=== PATIENT | female | born 1975 | race Caucasian/White ===

== ENCOUNTER 2024-12-19 12:13 | Outpatient (CLI) | payer OTHER, SELFPAY ==
--- NOTE | ~2024-12-19 | US_ITS ---
EXAMINATION: US FNA w image guidance DATE: 12/19/2024 13:37 INDICATION: Multiple thyroid nodules TECHNIQUE: A time-out was performed to verify the patient's name, date of , and procedure to be performed . The procedure and its benefits and risks were discussed with the patient. Risks specifically discus sed included bleeding and infection. The patient understood the risks and agreed to proceed. The neck was prepped and draped in the usual sterile manner. 3 mL 1% lidocaine was used for local anesthesia . 7 passes were made with a 25G needle into the lesion. Appropriate needle location was documented with continuous sonographic guidance. A sterile bandage was applied. There were no immediate compli cations. FINDINGS: Grayscale ultrasound images demonstrate biopsy needles advanced into a 1.2 cm predominately solid mix ed hypoechoic isoechoic nodule which is wider than tall with smooth margins and with a single punctat e echogenic focus (TI-RADS 5, highly suspicious , FNA if >=1.0 cm, annual followup is >0.5 cm). IMPRESSION: 1. Successful ultrasound-guided fine needle aspiration of a 1.2 cm TI RADS 5 right thyroid nodule. Reviewed, dictated and finalized at location A. IMPRESSION: 1. Successful ultrasound-guided fine needle aspiration of a 1.2 cm TI RADS 5 r ight thyroid nodule.
--- OUTSIDE RECORDS SUMMARY | 2024-12-19 12:45 | XMS_ITS | Clinical Summary ---
Author Organization [facility] Address [address] [place] [address] Care Team Providers Care Traffic Survey Technician Name Role Phone Bro Miller MD Primary Care Provider Anup Lyle MD Unavailable [phone] Allergies Active Allergy Reactions Criticality Noted Date Comments Amoxicillin-Pot Clavulanate Unknown,Hives Medium 06/15 Codeine Dizziness 03/11/2016 Doxycycline Nausea and Vomiting 10/30/2013 Latex Rash Medium 07/01/2015 Oseltamivir Hives,Nausea and Vomiting,Vomiting 09/11/2014 Medications empagliflozin (JARDIANCE) 25 MG tablet Take 1 tablet (25 mg total) by mouth daily. Active albuterol (PROVENTIL) (2.5 MG/3ML) 0.083% nebulizer solution Take 3 mLs (2.5 mg total) by nebulization every 4 (four) hours as needed for Wheezing or Shortness of breath. Active vitamin D3 (CHOLECALCIFERO L) 125 mcg Tab Take 1 tablet (125 mcg total) by mouth daily. Pt takes 50,000 IUD once a week on Active nitroglycerin (NITROSTAT) 0.[address] 1 tablet (0.4 mg total) under the tongue every 5 (five) minutes as needed (To be given 3-5 minute prior to IV contrast injection (send down to CT scanner with pt)). 25 tablet 3 4 Active aspirin 81 MG chewable tablet Chew 1 tablet (81 mg total) by mouth daily. Active inclisiran (LEQVIO) injection Inject 1.5 mLs (284 mg total) into the skin every 6 (six) months. Active ticagrelor (BRILINTA) 90 mg tablet Take 1 tablet (90 mg total) by mouth 2 (two) times daily. 60 tablet 1 4 Active ranolazine ER (RANEXA) 500 MG 12 hr tabletIndicatio ns:Chest pain, unspecified type Take 1 tablet (500 mg total) by mouth 2 (two) times daily. 60 tablet 4 Active nicotine (NICODERM CQ) 21 MG/24HR Place 1 patch (21 mg total) onto the skin daily. 28 patch 4 Active Active Problems Problem Noted Date Diagnosed Date Chest pain 06/06/2024 Family History Medical History Relation Comments Cancer Father Diabetes Father Cancer Mother Diabetes Mother Relation Status Comments Father Mother Social History Tobacco Use Types Packs/Day Years Used Date Smoking Tobacco: Every Day Cigarettes Smokeless Tobacco: Never Tobacco Cessation:Ready to Q uit: Not Asked; Counseling Given: Not Answered Alcohol Use Standard Drinks/Week Comments Yes 0 (1 standard drink = 0.6 oz pur e alcohol) occasional B1300 Health Literacy Answer Date Recor ded How often do you need to hav e someone help you when you read instructions, pamphlets, or other written material from your doctor or pharmacy? Never 06/06/2024 [facility] Utilities Answer Date Recorded In the past 12 months has [facility] [employer], oil, or water [employer] threatened to shut off services in your home? No 06/13/2024 Humiliation, Afraid, Rape, and Kick questionnair e Answer Date Recorded Within the last year, have y ou been afraid of your partner or ex-partner? No 06/13/2024 Within the last year, have y ou been humiliated or emotionally abused in other ways by your partner or ex-partner? No Within the last year, have y ou been kicked, hit, slapped, or otherwise physically hurt by your partner or ex-partner? No 06/13/2024 Within the last year, have y ou been raped or forced to have any kind of sexual activity by your partner or ex-partner? No 06/13/2024 Social Connection and Isolat ion Panel [NHANES] Answer Date Recorded In a typical week, how many times do you talk on the phone with family, friends, or neighbors? More than three times a week 06/06/2024 How often do you get togethe r with friends or relatives? More than three times a week 06/06/2024 How often do you attend chur ch or anabaptist services? Never 06/06/2024 Do you belong to any clubs o r organizations such as mu-ism groups, unions, fraternal or athletic groups, or school groups? Yes 06/06/2024 How often do you attend meet ings of the clubs or organizations you belong to? 1 to 4 times per year 06/06/2024 Are you , , di vorced, , never , or living with a partner? 06/06/2024 AUDIT-C Answer Date Recorded Q1: How often do you have a drink containing alcohol? Never 06/06/2024 Q2: How many drinks containi ng alcohol do you have on a typical day when you are drinking? Patient does not drink Q3: How often do you have si x or more drinks on one occasion? Never 06/06/2024 Overall Financial Resource Strain (CARDIA) Answe r Date Recorded How hard is it for you to pa y for the very basics like food, housing, medical care, and heating? Somewhat hard 06/13/2024 [facility] [place] of Occupat ional Health - Occupational Stress Questionnaire Answer Date Recorded Do you feel stress - tense, restless, nervous, or anxious, or unable to sleep at night because your mind is troubled all the time - these days? Very much 06/06/2024 Exercise Vital Sign Answer Date Recorde d On average, how many days pe r week do you engage in moderate to strenuous exercise (like a brisk walk)? 4 days 06/06/2024 On average, how many minutes do you engage in exercise at this level? 60 min 06/06/2024 Hunger Vital Sign Answer Date Recorded Within the past 12 months, y ou worried that your food would run out before you got the money to buy more. Never true 06/13/20 24 Within the past 12 months, t he food you bought just didn't last and you didn't have money to get more. Never true 06/13/2024 PRAPARE - Transportation Answer Date Re corded In the past 12 months, has l ack of transportation kept you from medical appointments or from getting medications? No 06/02 In the past 12 months, has l ack of transportation kept you from meetings, work, or from getting things needed for daily living? No 06/13/2024 Housing Stability Vital Sign Answer Rebel e Recorded In the last 12 months, was t here a time when you were not able to pay the mortgage or rent on time? No 06/13/2024 In the past 12 months, how m any times have you moved where you were living? 0 06/13/2024 At any time in the past 12 m [facility], were you homeless or living in a [place] facility (including now)? No 06/13/2024 Comments No Sex and Gender Information Value Date Recorded Sex Assigned at Not on file Legal Sex Female 8:22 PM CDT Gender Identity Not on file Sexual Orientation Not on file Last Filed Vital Signs Vital Sign Reading Time Taken Comments Blood Pressure 111/79 08/05/2024 6:27 PM SENIOR ACCOUNTS PAYABLE SPECIALIST Pulse 82 08/05/2024 6:30 PM SENIOR ACCOUNTS PAYABLE SPECIALIST Temperature 36.7 C (98.1 F) 08/05/2024 4:46 PM SENIOR ACCOUNTS PAYABLE SPECIALIST Respiratory Rate 16 08/05/2024 6:30 PM SENIOR ACCOUNTS PAYABLE SPECIALIST Oxygen Saturation 98% 08/05/2024 6:30 PM SENIOR ACCOUNTS PAYABLE SPECIALIST Inhaled Oxygen Concentration - - Weight 94.7 kg (208 lb 12.8 oz) 08/05/2024 4:46 PM SENIOR ACCOUNTS PAYABLE SPECIALIST Height 170.2 cm (5' 7 ) 08/05/2024 4:46 PM SENIOR ACCOUNTS PAYABLE SPECIALIST Body Mass Index 32.7 08/05/2024 4:46 PM SENIOR ACCOUNTS PAYABLE SPECIALIST Plan of Treatment Health Maintenance Due Date Last Done Comments ASCVD Statin 1976 Colorectal Cancer Screening Colonoscopy (10 Years) 1976 Kidney Health Evaluation 1976 Annual Physical 1979 Pneumococcal Vaccine: Pediatrics (0 to 5 Years) and At-Risk Patients (6 to 64 Years) (1 of 2 - PCV) 1982 DTaP, Tdap and Td Vaccines (2 - Tdap) 06/07/1991 06/06/1991, 12/20/1978, 04/20/1977, Additional history exists Diabetes: Retinopathy Eye Exam 1994 Hepatitis B Vaccines (1 of 3 - 19+ 3-dose series) 1995 Cervical Cancer Screening Pap with HPV Testing (Age 30 to 64) Every 5 Years 2006 Hemoglobin A1C 07/15/2014 01/13/2014 ASCVD LDL 06/01/2021 06/01/2020, 11/03, 04/02/2014, Additional history exists Lipid Panel 06/01/2021 06/01/2020, 11/03, 04/02/2014, Additional history exists Mammogram Screening 03/25/2022 03/25/2020, 0 Cervical Cancer Screening Pap Smear (Age 30 to 64) Every 3 Years 11/27/2023 11/27/2020, 11/22/2019 Cervical Cancer Screening with HPV 11/27/2023 COVID-19 Vaccine ( season) 2024 Influenza Adult (#1) 2024 09/17/2012, 07/27/20 Hepatitis C Completed 12/06/2018 Meningococcal B Vaccine Aged Out No l onger eligible based on patient's age to complete this topic Meningococcal Vaccine Aged Out No bull mejia eligible based on patient's age to complete this topic RSV Immunizations Under 20 Months Aged Out No longer eligible based on patient's age to complete this topic Medical Devices Implanted Type Area Health Care Aide Device Identifier Shelf Expiration Date Model / Serial / Lot Cv [facility] Bebo-Rca- [id number] Implanted:06/02 by Franky Silva MD (Quantity not on file) Stent Coronary RCA BIOTRONIK 01/16/2026 [id number] / / [id number] Procedures Procedure Name Priority Date/Time Associated Diagnosis Comments CYTOPATH CERV/VAG THIN LAYER Routine 11/27/2020 8:51 AM SENIOR ACCOUNTS PAYABLE SPECIALIST LIPID PANEL Routine 06/01/2020 10:42 AM CDT Polyarthralgia Positive FREDY (antinuclear antibody) Myalgia Anti-BLOOD BANK BOOKING CLERK antibodies present MG DIAG W BRYAN BILAT DIGI Routine 03/25/2020 9:02 AM CDT Breast pain HEMOGLOBIN, GLYCOSYLATED Routine 01/13/2014 8:39 AM CDT from Last 3 Months or Most Recently Relevant to Health Maintenance Results * Cytopath Cerv/Vag Thin Layer (11/27/2020 8:51 AM SENIOR ACCOUNTS PAYABLE SPECIALIST) THIN PREP PAP [address] [phone] Department of Pathology Pathology Report CERVICAL/VAGINAL PAP SMEAR REPORT Name: SRUTHI SHAVER Age: 2 1975 (Age: 45) Location: [facility] Sex: F Collected Date: 11/27/2020 Hospital #: [id number] Date Received: 12/01/2020 Date Reported: 12/08/2020 Provider: TRISH CELESTE INTERPRETATION ABNORMAL RESULT CERVICAL/ENDOCERVI NIELS: SATISFACTORY FOR EVALUATION. ENDOCERVICAL/TRANS FORMATION ZONE COMPONENT PRESENT. LOW GRADE SQUAMOUS INTRAEPITHELIAL LESION. POSITIVE FOR HIGH RISK HPV. The FDA approved Aptima HPV assay is an in vitro nucleic acid amplification test for the qualitative detection of E6/E7 viral messenger RNA (mRNA) from 14 high-risk types of human papillomavirus (HPV) in cervical specimens. The high-risk HPV types detected by the assay include: 16,18,31,33,35,39, 45,51,52,56,58,59, 66, and 68. Electronically Signed Out Tamy Martinez M.D. 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 Date of Last Menstrual Period: UNKNOWN Menstrual Status: Regular SPECIMEN SUBMITTED CERVICAL/ENDOCERVI NIELS Specimen Received:1 Thin Prep Vial, Image Assisted Pap (SMD) Please note: The Pap smear is not a diagnostic test. It is a screening test. Negative results on combined screening (Pap test and HPV-DNA) have a high negative predictive value (99.1-100 percent) for cervical cancer. The pap test is not effective in detecting cervical adenocarcinoma. [facility] 11/27/2020 8:51 AM SENIOR ACCOUNTS PAYABLE SPECIALIST 12/01/2020 8:51 AM SENIOR ACCOUNTS PAYABLE SPECIALIST Comment:CERVICAL/ENDOCERVICA L Trish Sanchez MD PATHOLOGY/CYTOLOGY ORDERABLES Final Result [facility] [address] [place] [address], [id number] [facility] [address] [place] [address], [place] [phone] * (ABNORMAL) LIPID PANEL (06/01/2020 10:42 AM CDT) CHOLESTEROL 257(H) <200 MG/DL 06/01/2020 11:14 AM CDT [facility] Comment: THE NATIONAL LIPID ASSOCIATION AND THE NATIONAL CHOLESTEROL EDUCATION PROGRAM (NCEP) HAVE SET THE FOLLOWING GUIDELINES FOR TOTAL CHOLESTEROL IN ADULTS AGES 18 AND UP. DESIRABLE: <200 BORDERLINE HIGH: 200-239 HIGH: > OR = 240 TRIGLYCERIDES 332(H) <150 MG/DL 06/01/2020 11:14 AM CDT [facility] Comment: THE NATIONAL LIPID ASSOCIATION AND THE NATIONAL CHOLESTEROL EDUCATION PROGAM (NCEP) HAVE SET THE FOLLOWING GUIDELINES FOR TRIGLYCERIDES IN ADULTS AGES 18 AND UP. NORMAL: <150 BORDERLINE HIGH: 150 TO 199 HIGH: 200 TO 499 VERY HIGH: >499 HDL 35(L) >49 MG/DL 06/01/2020 11:14 AM CDT [facility] Comment: THE NATIONAL LIPID ASSOCIATION AND THE NATIONAL CHOLESTEROL EDUCATION PROGAM (NCEP) HAVE SET THE FOLLOWING GUIDELINES FOR HDL CHOLESTEROL IN ADULTS AGES 18 AND UP. MALES: >39 FEMALES: >49 LDL (CALCULATED) 156(H) <100 MG/DL 06/01/20 20 11:14 AM CDT [facility] Comment: THE NATIONAL LIPID ASSOCIATION AND THE NATIONAL CHOLESTEROL EDUCATION PROGAM (NCEP) HAVE SET THE FOLLOWING GUIDELINES FOR LDL CHOLESTEROL IN ADULTS AGES 18 AND UP. DESIRABLE: <100 ABOVE DESIRABLE: 100 TO 129 BORDERLINE HIGH: 130 TO 159 HIGH: 160 TO 189 VERY HIGH: >189 VLDL CALCULATION 66 MG/DL 06/01/20 20 11:14 AM CDT [facility] Comment:REFERENCE RANGE NOT ESTABLISHED CHOL/HDL RATIO 7.3 06/01/2020 11:14 AM CDT [facility] Comment:REFERENCE RANGE NOT ESTABLISHED LDL/HDL 4.4 06/01/2020 11:14 AM CDT [facility] Comment:REFERENCE RANGE NOT ESTABLISHED NON HDL CHOLESTEROL 222 MG/DL 06/01/2020 11:14 AM CDT [facility] Comment:REFERENCE RANGE NOT ESTABLISHED 06/01/2020 10:4 2 AM CDT us Garo Block MD LABORATORY Final Result [facility] [address] [email or web address] [address], * MG DIAG W BRYAN BILAT DIGI (03/25/2020 9:02 AM CDT) Anatomical Region Laterality Modality Breast Bilateral Mammography 03/25/2020 8:59 AM CDT Impressions 03/25/2020 9:02 AM CDT IMPRESSION: No mammographic findings suggestive of malignancy. Recommendation: 1: Routine screening mammogram bilateral in 1 year Return for Routine Follow-Up: Yes Assessment: ACR BI-RADS Category 2 - Benign. Interpreted By: Anup Amaya MD, 03/25/2020 8:59 AM Narrative 03/25/2020 9:02 AM CDT Examination: Digital bilateral diagnostic mammogram Clinical history: Intermittent right periareolar breast pain this was evaluated with mammogram and ultrasound in November 2019 with no significant findings. Comparison: Mammograms 10/30/2019, 12/13/2018 and 06/13/2017 Technique: Digital diagnostic mammography of both breasts was performed. Breast tomosynthesis acquisitions were obtained bilaterally. This study was read with the assistance of a computer-aided detection system. Tissue density: There are scattered areas of fibroglandular density. Findings: There is no focal abnormality to correspond with the painful right breast periareolar region. No suspicious masses, malignant appearing calcifications, skin thickening or other abnormalities are present. No significant change from the prior exam. [facility] Final Result * HEMOGLOBIN, GLYCOSYLATED (01/13/2014 8:39 AM CDT) HGB A1C 5.7 4.8 - 5.9 % [facility] TO EPIC CONVERSION GLUCOSE 104 mg/dL [facility] T O EPIC CONVERSION 01/13/2014 8:39 AM CDT 01/13/2014 8:39 AM CDT Narrative [facility] TO EPIC CONVERSION - 01/13/2014 8:58 AM CDT This lab was migrated from [facility] and may be missing annotations or result text, please check the Media tab for the most complete results. Shahla M Sabine [facility] Final Result [facility] TO EPIC CONVERSION from Last 3 Months or Most Recently Relevant to Health Maintenance Insurance [place] Advance Directives Documents on File Type Date Recorded Patient Security Operations Manager Expl anation Advance Directives and Living Will 04/07/2014 12:00 AM ADVANCED DIRECTIVES * Full Code (Latest Code Status on File) Date Activated Date Inactivated Comments 06/13/2024 5:46 PM 06/14/2024 7:26 PM * Full Code Date Activated Date Inactivated Comments 06/06/2024 3:50 PM 06/07/2024 6:10 PM Care Teams Traffic Survey Technician Relationship Specialty Start Date End Date Bro Miller MD [address] [place] [phone] PCP - General FAMILY PRACTICE 01/08/21 Anup Lyle MD [address] [place] [phone] Consulting Physician CARDIOVASCULAR DISEASE 06/18/24
--- OUTSIDE RECORDS SUMMARY | 2024-12-19 12:45 | XMS_ITS | Encounter Summary ---
Author Organization [facility] Address [address] [place] [address] Care Team Providers Care Trauma Manager Name Role Phone Henrik Sloan MD Primary Care Provider [phone] Bro Miller MD Primary Care Provider [phone] Anup Lyle MD Unavailable [phone] Encounter Details Date Type Department Care Team (Late st Contact Info) Description 03/09/2019 Abstract SFL CONVERSION [address] [place] [address] , Generic Conversion, Social History Tobacco Use Types Packs/Day Years Used Date Smoking Tobacco: Smoker, Current Status Unknown Comments Unknown Sex and Gender Information Value Date Recorded Sex Assigned at Not on file Legal Sex Female 8:22 PM CDT Gender Identity Not on file Sexual Orientation Not on file documented as of this encounter Plan of Treatment Not on file documented as of this encounter Visit Diagnoses Not on filedocumented in this encounter Additional Health Concerns Infection Onset Date Last Indicated Resolved Time COVID-19 Rule Out 10/29/2020 10/29/2020 10/30/2020 12:05 AM RELOCATION SPECIALIST COVID-19 Rule Out 10/09/2021 10/09/2021 10/09/2021 3:05 AM RELOCATION SPECIALIST COVID-19 Confirmed 10/09/2021 10/09/2021 12:33 AM RELOCATION SPECIALIST COVID-19 Rule Out 12/26/2022 12/26/2022 12/26/2022 2:05 AM CDT COVID-19 Rule Out 09/03/2023 09/03/2023 09/03/2023 9:46 PM RELOCATION SPECIALIST COVID-19 Rule Out 01/08/2024 01/08/2024 01/08/2024 6:08 AM CDT documented as of this encounter Care Teams Trauma Manager Relationship Specialty Start Date End Date Henrik Sloan MD [address] [place] [phone] PCP - General FAMILY PRACTICE 04/30/19 01/07/21 Bro Miller MD [address] [place] [phone] PCP - General FAMILY PRACTICE 01/08/21 Anup Lyle MD [address] [place] [phone] Consulting Physician CARDIOVASCULAR DISEASE 06/18/24 documented as of this encounter
--- OUTSIDE RECORDS SUMMARY | 2024-12-19 12:45 | XMS_ITS | Encounter Summary ---
Author Organization [facility] Address [address] [place] [address] Care Team Providers Care Book Or Script Editor Name Role Phone Bro Miller MD Primary Care Provider [phone] Anup Lyle MD Unavailable [phone] Encounter Details Date Type Department Care Team (Late st Contact Info) Description 06/17/2024 Hospital Follow-up Call [facility] [address] [place] [address] Roxane Wheatley, RN Social History Tobacco Use Types Packs/Day Years Used Date Smoking Tobacco: Every Day Cigarettes Smokeless Tobacco: Never Alcohol Use Standard Drinks/Week Comments Yes 0 (1 standard drink = 0.6 oz pur e alcohol) occasional B1300 Health Literacy Answer Date Recor ded How often do you need to hav e someone help you when you read instructions, pamphlets, or other written material from your doctor or pharmacy? Never 06/06/2024 [facility] Utilities Answer Date Recorded In the past 12 months has [facility] [employer] gas, oil, or water [employer] threatened to shut off services in your [...] often do you attend chur ch or orthodox services? Never 06/06/2024 Do you belong to any clubs o r organizations such as muslim groups, unions, fraternal or athletic groups, or [...] medical care, and heating? Somewhat hard 06/13/2024 [facility] of Occupat ionne Health - Occupational Stress Questionnaire Answer Date [...] any time in the past 12 m ont, were you homeless or living in a group home (including now)? No 06/13/2024 Comments No Sex and Gender Information Value Date Recorded Sex Assigned at Not on file Legal Sex Female 8:22 PM CDT Gender Identity Not on file Sexual Orientation Not on file documented as of this encounter Functional Status * Are you deaf or do you have serious difficulty hearing Answer Date of Assessment Author Status No 06/13/2024 5:05 PM Claribel Rodriguez RN Active * Are you blind or do you have serious difficulty seeing, even when wearing glasses? Answer Date of Assessment Author Status No 06/13/2024 5:05 PM Claribel Rodriguez RN Active * Do you have serious difficulty walking or climbing stairs? Answer Date of Assessment Author Status No 06/13/2024 5:05 PM Claribel Rodriguez RN Active * Do you have difficulty dressing or bathing? Answer Date of Assessment Author Status No 06/13/2024 5:05 PM Claribel Rodriguez RN Active * Because of a physical, mental, or emotional condition, do you have difficulty doing errands alone such as visiting a doctor's office or shopping? Answer Date of Assessment Author Status No 06/13/2024 5:05 PM Claribel Rodriguez RN Active documented as of this encounter Mental Status * Because of a physical, mental, or emotional condition, do you have serious difficulty concentrating, remembering, or making decisions? Answer Entry Date Author Status No 06/13/2024 5:05 PM CDT Claribel Elizondo RN Active documented in this encounter Plan of Treatment Not on file documented as of this encounter Visit Diagnoses Not on filedocumented in this encounter Care Teams Book Or Script Editor Relationship Specialty Start Date End Date Bro Miller MD [address] [place] [phone] PCP - General FAMILY PRACTICE 01/08/21 Anup Lyle MD [address] [place] [phone] Consulting Physician CARDIOVASCULAR DISEASE 06/18/24 documented as of this encounter
--- OUTSIDE RECORDS SUMMARY | 2024-12-19 12:45 | XMS_ITS | Clinical Summary ---
Author Organization [facility] [employer] Address [address] [facility] [place] [address] Care Team Providers Care Nail Puller Name Role Phone Henrik Sloan MD Primary Care Provider [phone] Source Comments [facility],non-owned Affiliates and Associated Physician Practices is amultiple site organization consisting of ambulatory clinics and hospital sitesin [place], [place], [place] and [place]. This disclosure is being madepursuant to the Care Everywhere program and may not contain all information available regarding this patient. Last updated 18.[facility] [employer] Allergies Active Allergy Reactions Criticality Noted Date Comments Augmentin Urticaria Medium 12/06/2018 Latex Rash Medium 12/06/2018 Tamiflu Nausea and/or Vomiting 12/06/2018 Medications * Be aware that medications may not be up to date on this document. Alwaysverify current medications with the patient. Medication Sig Dispensed Refills Start Date End Date Status VENTOLIN HFA 108 (90 BASE) MCG/ACT inhaler 08/21/2018 Act michelle SUMAtriptan (IMITREX) 50 MG tablet 01/01/2019 Active nortriptyline (PAMELOR) 10 MG capsule 01/01/2019 Active vitamin D, cholecalciferol, 50 MCG (2000 UT) tablet Take 50,000 Units by mouth 2 times daily Active Active Problems No known active problems Family History Medical History Relation Name Comments Cancer - Other Father Arthritis - Rheumatoid Mother Diabetes - Type 2 Mother Hypertension Mother Thyroid Disease Mother Depression Sister 1 Arthritis - Osteo Sister 2 Relation Name Status Comments Father Mother Sister 1 Sister 2 Social History Tobacco Use Types Packs/Day Years Used Date Smoking Tobacco: Every Day Smokeless Tobacco: Never Comments:<1 PPD, 25 years. Alcohol Use Standard Drinks/Week Comments Yes 0 (1 standard drink = 0.6 oz pur e alcohol) socially Sex and Gender Information Value Date Recorded Sex Assigned at Not on file Gender Identity Not on file Sexual Orientation Not on file Last Filed Vital Signs Vital Sign Reading Time Taken Comments Blood Pressure 136/90 07/02/2019 10:30 AM CDT Pulse 80 01/07/2019 3:43 PM CDT Temperature 36.7 C (98.1 F) 07/02/2019 10:30 AM CDT Respiratory Rate - - Oxygen Saturation - - Inhaled Oxygen Concentration - - Weight 124.3 kg (274 lb) 07/02/2019 10:30 AM CDT Height 170.2 cm (5' 7 ) 07/02/2019 10:30 AM CDT Body Mass Index 42.91 07/02/2019 10:30 AM CDT Plan of Treatment Health Maintenance Due Date Last Done Comments COLOGUARD (AGES 45-75) - COL ON CA SCREENING 1976 COLON MONITORING 1976 COLONOSCOPY - COLON CA SCREENING 1976 CT COLONOGRAPHY - COLON CA SCREENING 1976 Colorectal Cancer Screening 1976 FIT - COLON CA SCREENING 1976 FLEX SIG - COLON CA SCREENING 1976 PAP SMEAR 1976 HIV SCREENING 1991 DTAP/TDAP/TD VACCINES (1 - Tdap) 1995 HEPATITIS B VACCINE (1 of 3 - 19+ 3-dose series) 1995 SCREENING FOR DIABETES 12/06/2018 MAMMOGRAM 03/25/2022 03/25/2020 COVID-19 VACCINE (1 - 2023-2 5 season) 2024 INFLUENZA VACCINE (#1) 2024 DEPRESSION SCREENING 10/02/2024 LIPID TESTING 06/01/2025 06/01/2020 ZOSTER VACCINE (1 of 2) 2026 HEPATITIS C SCREENING Completed 12/06/2018 HIB VACCINE Aged Out No longer eligi ble based on patient's age to complete this topic HPV VACCINE Aged Out No longer eligi ble based on patient's age to complete this topic MENINGOCOCCAL (Group B) VACC INE SHARED DECISION-MAKING Aged Out No longer eligibl e based on patient's age to complete this topic MENINGOCOCCAL GROUPS A/C/Y/W VACCINE Aged Out No longer eligible b ased on patient's age to complete this topic PNEUMOCOCCAL VACCINE Aged Out No long er eligible based on patient's age to complete this topic Procedures Procedure Name Priority Date/Time Associated Diagnosis Comments HEPATITIS C ANTIBODY Routine 12/06/2018 10:40 AM FAMILY PRACTICE PHYSICIAN Polyarthralgia Myalgia Fatigue, unspecified type Chronic bilateral low back pain, with sciatica presence unspecified Migraine without status migrainosus, not intractable, unspecified migraine type Tobacco use disorder Vitamin D deficiency from Last 3 Months or Most Recently Relevant to Health Maintenance Results * HEPATITIS C ANTIBODY (12/06/2018 10:40 AM FAMILY PRACTICE PHYSICIAN) Hepatitis C Antibody Non-react michelle Non-reac tive 12/06/2018 12:14 PM FAMILY PRACTICE PHYSICIAN [facility] Comment: Hepatitis C Antibody screen indicates no serologic evidence of past or current infection with Hepatitis C Virus. Patients with unexplained liver disease who are immunocompromised or suspected of having acute Hepatitis C infection may benefit from Nucleic Acid Test (RENE) for Hepatitis C Viral RNA to confirm Hepatitis C status. Blood BLOOD SPECIMEN / Unknown Lab Venipuncture / Unknown 12/06/2018 10:40 AM FAMILY PRACTICE PHYSICIAN 12/06/2018 11:19 AM FAMILY PRACTICE PHYSICIAN Chata Saucedo DO LAB - CHEMISTRY CLAU ESPINAL Performing Organization Address City/State/[facility] Co de Phone Number [facility] [address] [place] [address] from Last 3 Months or Most Recently Relevant to Health Maintenance Care Teams Nail Puller Relationship Specialty Start Date End Date Henrik Sloan MD [address] [place] [phone] PCP - General 05/24/18
--- OUTSIDE RECORDS SUMMARY | 2024-12-19 12:45 | XMS_ITS ---
Author Organization Unknown Address [address] [place] [phone] Phone Care Team Providers Care Crust Sorter Name Role Phone JOSE MANUEL Aparicio Attending Unavailable JESSE Melo Primary Unavailable Immunization Immunization Date Status Additional Notes Code Code System DTP 01/14/1977 Completed 01 CVX DTP 03/05/1977 Completed CVX DTP 04/20/1977 Completed CVX DTP 12/20/1978 Completed 01 CVX OPV 06/18/1977 Completed 02 CVX OPV 11/05/1977 Completed 02 CVX OPV 03/24/1978 Completed 02 CVX OPV 01/03/1980 Completed 02 CVX MMR 02/21/1978 Completed 03 CVX MMR 01/03/1980 Completed 03 CVX Td (adult), 2 Lf tetanus toxoid, preservative free, adsorbed 06/06/1991 Completed 09 CVX Novel [id number] 07/27/2009 Completed 127 CVX Social History Type Status Start Date End Date Code Code Syst em Smoking History Current every day smoker 972582549 SNOMED CT Sex Female Medications Medication Start Date End Date Route Frequency Dose Code Code System Medication Instructions Home Meds Albuterol Sulfate 0.09MG/1Actuation Inhalation Suspension 06/22/2023 Unknown INHALATION NEEDED 1 unit(s) 8933768 RxNorm 1 EACH INHALATION NEEDED Omeprazole 40MG Oral Capsule, Delayed Release 06/22/2023 Unknown ORAL NEEDED 40 MILLIGRA MS [id number] RxNorm TAKE 40 MILLIGRAMS ORAL NEEDED Sochlor 5% Ophthalmic Solution 06/22/2023 Unknown OPHTHALMIC DIRECTE D 1 unit(s) 059277 RxNorm 1 EACH OPHTHALMIC DIRECTED Vitamin D3 86848 IU Oral Capsule 06/22/2023 Unknown ORAL ONCE A WEEK 38294 IU 619308 RxNorm TAKE 60103 IU ORAL ONCE A WEEK traMADol HCl 50MG Oral Tablet 06/22/2023 Unknown ORAL NEEDED 50 MILLIGRA MS 256464 RxNorm TAKE 50 MILLIGRAMS ORAL NEEDED Assessment You had the following problems:CONTACT WITH AND (SUSPECTED) EXPOSURE TO OTHER VIRAL COMMUNICABLE DISEASESNASAL CONGESTIONOTHER SPECIFIED ABNORMAL FINDINGS OF BLOOD CHEMISTRY Hospital Discharge Instructions Should you have any questions prior to discharge, please contact a member of your healthcare team. If you have left the hospital and have any questions, please contact your primary care physician. Reason For Referral No Data Found Problems Problem Start Date Resolved Date Status Code Code System CONTACT WITH AND (SUSPECTED) EXPOSURE TO OTHER VIRAL COMMUNICABLE DISEASES active 487547070 SNOMED -CT NASAL CONGESTION active 71983637 SNO MED-CT OTHER SPECIFIED ABNORMAL FINDINGS OF BLOOD CHEMISTRY active 397991787 SNOMED-CT Allergies and Adverse Reactions Allergy Substance Reaction Severity Start Date Concern Status Code Code System AMOXICILLIN Active 723 RxNorm CODEINE Confusion (SNOMED-CT: 796761028) Active 2670 RxNorm DOXYCYCLINE Vomiting (SNOMED-CT: 999569095) Active 3640 RxNorm CLAVULANIC ACID Active 97058 RxNorm LATEX Rash (SNOMED-CT: 398173431) Active 3950942 RxNorm OSELTAMIVIR Active 649741 RxNorm AUGMENTIN Hives (SNOMED-CT: 678984119) Active 481282 RxNorm TAMIFLU Vomiting (SNOMED-CT: 916301195) Active 809467 RxNorm Plan of Treatment NM Spect Perf Rest Stress Multi (19276) 09/19/2023 Stress Test Chemical 09/19/2023 NM Spect Perf Rest Stress Multi (15642) 09/19/2023 Stress Test Chemical 09/19/2023 Encounters Encounter Diagnosis Start Date Code Code Sys tem Hypersomnia 08/09/2023 67339125 SNOMED-CT Personal Care Team Section Performer Name Performer Role Active Date Inactive NAN Rodriguez PCP - Primary care physician 2023-04-19
--- OUTSIDE RECORDS SUMMARY | 2024-12-19 12:45 | XMS_ITS | Encounter Summary ---
Author Organization [facility] Address [address] [place] [address] Care Team Providers Care Counter Dish Carrier Name Role Phone Bro Miller MD Primary Care Provider [phone] Anup Lyle MD Unavailable [phone] Encounter Details Date Type Department Care Team (Late st Contact Info) Description 06/17/2024 Hospital Follow-up Call [facility] Cardiovascular Care Unit [address] [place] [address] Roxane Wheatley, RN Social History [...] from your doctor or pharmacy? Never 06/06/2024 [facility] Utilities Answer Date Recorded In the past 12 months has [facility] [employer] gas, oil, or water [employer] threatened to shut off services in your [...] often do you attend chur ch or yazidism services? Never 06/06/2024 Do you belong to any clubs o r organizations such as adventism groups, unions, fraternal or athletic groups, or [...] medical care, and heating? Somewhat hard 06/13/2024 [facility] - Occupational Stress Questionnaire Answer Date [...] were you homeless or living in a alf (including now)? No 06/13/2024 Comments No Sex [...] on filedocumented in this encounter Care Teams Counter Dish Carrier Relationship Specialty Start Date End Date Bro Millre MD [address] [place] [phone] PCP - General FAMILY PRACTICE 01/08/21 Anup Lyle MD [address] [place] [phone] Consulting Physician CARDIOVASCULAR DISEASE 06/18/24 documented as of this encounter
--- OUTSIDE RECORDS SUMMARY | 2024-12-19 12:46 | XMS_ITS ---
Author Organization Unknown Address [address] [place] [address] [phone] Phone Care Team Providers Care Cnp Name Role Phone JOSE MANUEL Aparicio Attending Unavailable JESSE Melo Primary Unavailable Immunization Immunization Date Status Additional Notes Code Code System DTP 01/14/1977 Completed 01 CVX DTP 03/05/1977 Completed 01 CVX DTP 04/20/1977 Completed CVX DTP 12/20/1978 Completed 01 CVX OPV 06/18/1977 Completed 02 CVX OPV 11/05/1977 Completed 02 CVX OPV 03/24/1978 Completed 02 CVX OPV 01/03/1980 Completed 02 CVX MMR 02/21/1978 Completed 03 CVX MMR 01/03/1980 Completed 03 CVX Td (adult), 2 Lf tetanus toxoid, preservative free, adsorbed 06/06/1991 Completed 09 CVX Novel [id number] 07/27/2009 Completed 127 CVX Social History Type Status Start Date End Date Code Code Syst em Smoking History Current every day smoker 208582381 SNOMED CT Sex Female Vital Signs Vital Sign Value Unit [place] Value [place] Unit Date/Time Recent/Initial? Code Code System Body Mass Index 35.71 kg/m2 12/26/2023 15:10 Initial 34445 -5 LOINC Systolic Blood Pressure 143 mm[Hg] 12/26/2023 15:09 Initial 8480- 6 LOINC Diastolic Blood Pressure 94 mm[Hg] 12/26/2023 15:09 Initial 8462- 4 LOINC Body Surface Area 2.21 m2 12/26/2023 15:10 Initial 3140- 1 LOINC Height 170.180 0 cm 67.00 in 12/26/2023 15:10 Initial 8302- 2 LOINC O2 Saturation 96 % 2023 15:09 Initial 20763 -5 [facility] Pulse 88.0 /min 12/26/2023 15:09 Initial 8867- 4 [facility] Respiration 22 /min 12/26/19 15:09 Initial 9279- 1 [facility] Temperature 35.5 [place] 95.9 F 12/26/19 15:09 Initial 8310- 5 [facility] Weight 103.42 kg 228.00 lbs 12/26/2023 15:10 Initial 09888 -7 [facility] Medications Medication Start Date End Date Route Frequency Dose Code Code System Medication Instructions Home Meds Albuterol Sulfate 0.09MG/1Actuation Inhalation Suspension 06/22/2023 Unknown INHALATION NEEDED 1 unit(s) 8074434 RxNorm 1 EACH INHALATION NEEDED Omeprazole 40MG Oral Capsule, Delayed Release 06/22/2023 Unknown ORAL NEEDED 40 MILLIGRA MS 275286 RxNorm TAKE 40 MILLIGRAMS ORAL NEEDED Sochlor 5% Ophthalmic Solution 06/22/2023 Unknown OPHTHALMIC DIRECTE D 1 unit(s) 497057 RxNorm 1 EACH OPHTHALMIC DIRECTED Vitamin D3 03636 IU Oral Capsule 06/22/2023 Unknown ORAL ONCE A WEEK 21728 IU 916537 RxNorm TAKE 50634 IU ORAL ONCE A WEEK traMADol HCl 50MG Oral Tablet 06/22/2023 Unknown ORAL NEEDED 50 MILLIGRA MS 307966 RxNorm TAKE 50 MILLIGRAMS ORAL NEEDED Assessment [...] EXPOSURE TO OTHER VIRAL COMMUNICABLE DISEASES active 492107592 SNOMED -CT NASAL CONGESTION active 79667677 SNO MED-CT OTHER SPECIFIED ABNORMAL FINDINGS OF BLOOD CHEMISTRY active 390689202 SNOMED-CT Allergies and Adverse Reactions Allergy Substance Reaction Severity Start Date Concern Status Code Code System AMOXICILLIN Active 723 RxNorm CODEINE Confusion (SNOMED-CT: 167682333) Active 2670 RxNorm DOXYCYCLINE Vomiting (SNOMED-CT: 953085200) Active 3640 RxNorm CLAVULANIC ACID Active 29691 RxNorm LATEX Rash (SNOMED-CT: 577928362) Active 2313999 RxNorm OSELTAMIVIR Active 222591 RxNorm AUGMENTIN Hives (SNOMED-CT: 519710188) Active 991476 RxNorm TAMIFLU Vomiting (SNOMED-CT: 994785511) Active 102676 RxNorm Plan of Treatment NM Spect Perf Rest Stress Multi (79512) 09/19/2023 Stress Test Chemical 09/19/2023 NM Spect Perf Rest Stress Multi (45604) 09/19/2023 Stress Test Chemical 09/19/2023 Encounters Encounter Diagnosis Start Date Code Code Sys tem Hyperlipidemia 12/26/2023 76972013 [facility] [employer] [facility] (EBTH)OMED-CT Personal Care Team Section Performer Name Performer Role Active Date Inactive NAN Rodriguez PCP - Primary care physician 2023-04-19
--- OUTSIDE RECORDS SUMMARY | 2024-12-19 12:46 | XMS_ITS ---
Author Organization Unknown Address [address] [place] [address] [phone] Phone Care Team Providers Care Guard Museum Name Role Phone JOSE MANUEL Aparicio Attending Unavailable JESSE Melo Primary Unavailable Immunization Immunization Date Status Additional Notes Code Code System DTP 01/14/1977 Completed 01 CVX DTP 03/05/1977 Completed 01 CVX DTP 04/20/1977 Completed 01 CVX DTP 12/20/1978 Completed 01 CVX OPV 06/18/1977 Completed 02 CVX OPV 11/05/1977 Completed 02 CVX OPV 03/24/1978 Completed 02 CVX OPV 01/03/1980 Completed 02 CVX MMR 02/21/1978 Completed 03 CVX MMR 01/03/1980 Completed 03 CVX Td (adult), 2 Lf tetanus toxoid, preservative free, adsorbed 06/06/1991 Completed 09 CVX Novel [id number] 07/27/2009 Completed 127 CVX Social History Type Status Start Date End Date Code Code Syst em Smoking History Current every day smoker 110628641 SNOMED CT Sex Female Vital Signs Vital Sign Value Unit [place] Value [place] Unit Date/Time Recent/Initial? Code Code System Body Mass Index 35.40 kg/m2 10/05/2023 15:24 Initial 74532 -5 LOINC Systolic Blood Pressure 135 mm[Hg] 10/05/2023 15:23 Initial 8480- 6 LOINC Diastolic Blood Pressure 92 mm[Hg] 10/05/2023 15:23 Initial 8462- 4 LOINC Body Surface Area 2.20 m2 10/05/2023 15:24 Initial 3140- 1 LOINC Height 170.180 0 cm 67.00 in 10/05/2023 15:24 Initial 8302- 2 LOINC O2 Saturation 100 % 2023 15:23 Initial 70784 -5 INC Pulse 83.0 /min 10/05/2023 15:23 Initial 8867- 4 LOINC Respiration 22 /min 10/05/19 15:23 Initial 9279- 1 LOINC Temperature 36.0 [place] 96.8 F 10/05/19 15:23 Initial 8310- 5 LOINC Weight 102.51 kg 226.00 lbs 10/05/2023 15:24 Initial 02970 -7 [facility] Medications Medication Start Date End Date Route Frequency Dose Code Code System Medication Instructions Home Meds Albuterol Sulfate 0.09MG/1Actuation Inhalation Suspension 06/22/2023 Unknown INHALATION NEEDED 1 unit(s) 4065307 RxNorm 1 EACH INHALATION NEEDED Omeprazole 40MG Oral Capsule, Delayed Release 06/22/2023 Unknown ORAL NEEDED 40 MILLIGRA MS 136221 RxNorm TAKE 40 MILLIGRAMS ORAL NEEDED Sochlor 5% Ophthalmic Solution 06/22/2023 Unknown OPHTHALMIC DIRECTE D 1 unit(s) 422310 RxNorm 1 EACH OPHTHALMIC DIRECTED Vitamin D3 17002 IU Oral Capsule 06/22/2023 Unknown ORAL ONCE A WEEK 44896 IU 472280 RxNorm TAKE 37496 IU ORAL ONCE A WEEK traMADol HCl 50MG Oral Tablet 06/22/2023 Unknown ORAL NEEDED 50 MILLIGRA MS 356616 RxNorm TAKE 50 MILLIGRAMS ORAL NEEDED Assessment [...] EXPOSURE TO OTHER VIRAL COMMUNICABLE DISEASES active 945436802 SNOMED -CT NASAL CONGESTION active 56630948 SNO MED-CT OTHER SPECIFIED ABNORMAL FINDINGS OF BLOOD CHEMISTRY active 714497064 SNOMED-CT Allergies and Adverse Reactions Allergy Substance Reaction Severity Start Date Concern Status Code Code System AMOXICILLIN Active 723 RxNorm CODEINE Confusion (SNOMED-CT: 569586853) Active 2670 RxNorm DOXYCYCLINE Vomiting (SNOMED-CT: 339235718) Active 3640 RxNorm CLAVULANIC ACID Active 71339 RxNorm LATEX Rash (SNOMED-CT: 439870557) Active 0580663 RxNorm OSELTAMIVIR Active 675772 RxNorm AUGMENTIN Hives (SNOMED-CT: 695006699) Active 661928 RxNorm TAMIFLU Vomiting (SNOMED-CT: 101618441) Active 910784 RxNorm Plan of Treatment NM Spect Perf Rest Stress Multi (86173) 09/19/2023 Stress Test Chemical 09/19/2023 NM Spect Perf Rest Stress Multi (77929) 09/19/2023 Stress Test Chemical 09/19/2023 Encounters Encounter Diagnosis Start Date Code Code Sys tem Hyperlipidemia 10/05/2023 87911784 [facility]ole[facility]OMED-CT Personal Care Team Section Performer Name Performer Role Active Date Inactive NAN Rodriguez PCP - Primary care physician 2023-04-19
== END 2024-12-19 12:14 | disposition home or self-care (01) ==
LOC: ANHIMG 12:16
PROVIDERS: PCP Family Medicine; Visit Provider Family Medicine
DX: E04.2 Nontoxic multinodular goiter (principal)
CPT/HCPCS: 10005; 88172; 88173; 88177; 88305